=== PATIENT | male | born 1955 | race Caucasian/White ===

== ENCOUNTER 2023-05-07 23:34 | Emergency (ER) | payer MEDICARE, SELFPAY ==
--- NOTE | 2023-05-08 00:05 | ED_ITS ---
HPI - General Adult General Stated complaint: cardiac arrest Time Seen by Provider: 05/08/23 00:05 History of Present Illness HPI narrative: Patient 68-year-old gentleman who presents emergency department with chief complaint of cardiac arrest. The patient was visiting from [place] had just gone to his high school reunion and was at his sister's house and started complaining of discomfort between his shoulder blades and became short of breath. The patient became unresponsive when EMS arrived and at that point went into cardiac arrest. ACLS was initiated by EMS they were unable to intubate the patient in the field due to extensive vomiting Review of Systems Review of Systems: ROS unobtainable: Yes unobtainable due to endotracheal tube, unobtainable due to medical condition and unobtainable due to mental status PMFSH Comments No known past medical history Patient is from [place] Patient has been for over 10 years Exam Narrative: GENERAL: Ill-appearing unresponsive HEAD: Normocephalic, atraumatic. EYES: Pupils fixed dilated. ENT: Nares clear, no rhinorrhea or epistaxis. Mucous membranes moist. Large amount of vomitus in the oropharynx NECK: Supple. CHEST: Clear to auscultation. No respiratory distress. HEART: Regular rate and rhythm. No murmur heard. Normal peripheral pulses. ABDOMEN: Soft, nontender, nondistended, normal active bowel sounds. EXTREMITIES: Normal range of motion. No edema. SKIN: Warm, dry, no rash. NEURO: Unresponsive. PSYCH: Unresponsive Procedures Intubation Intubation #1: Intubation Date: 05/08/23 Intubation Time: 00:06 Time out performed: No sedative: none Laryngoscope: fiber optic video scope Tube Size (cm): 7.5 Method of Intubation: orotracheal Number of Attempts: 1 Tube Secured Depth (cm): 20 Tube Secured Location: lips Tube Placement Confirmation: visualized tube passing through cords, equal breath sounds bilaterally, no breath sounds over epigastrium and confirmation by capnometry Patient Tolerated Procedure: well and no complications Intubation Complications: none Additional Comments: Large amount of food material in the airway that was suctioned Medical Decision Making MDM Narrative Medical decision making narrative: Differential diagnosis includes PE, ACS, aneurysm dissection dysrhythmia ACLS protocols were initiated upon arrival and the patient did already had over 5 rounds of epinephrine prior to arrival in the emergency department patient arrived at 2336 ACLS was continued to the patient received 3 A of bicarb received multiple rounds of epinephrine in the emergency department and ultimately the patient was asystole. Patient had no return of spontaneous circulation after airway was secured and adequately suctioned and ventilated the patient was pronounced at 2356 Discharge Plan Discharge Clinical Impression: Cardiopulmonary arrest Patient Disposition: Condition: Follow-up/Referrals: UNKNOWN,DOCTOR [Primary Care Provider] - Time of Disposition: 23:56
== END 2023-05-08 02:59 | disposition expired ==
PROVIDERS: Emergency Provider Emergency Medicine
DX: I46.9 Cardiac arrest, cause unspecified (principal)
CPT/HCPCS: 31500; 92950; 99285; J0171; J3475; J7030